=== PATIENT | female | born 2000 | race Caucasian/White ===

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

== ENCOUNTER 2020-08-29 16:46 | Emergency (ER) | payer OTHER ==
[~2020-08-29] VITALS: Ht 162.6 cm; Wt 81.8 kg
[~2020-08-29 16:46] MED LIST: ACNE MEDICINE; ALDACTONE 25MG25 M1 PO; ANTIBIOTIC; CEFTIN500 MG PO; DIFLUCAN 100MG100 MG PO; LEVAQUIN 5500 MG/TA1 PO; LEVSIN 0.10.125 MG/T PO
[2020-08-29 17:21] VITALS: TEMP 98.3
[2020-08-29] MEDS ORDERED: NEXPLANON68 MG ID (22:11)
[2020-08-29] MEDS ORDERED: VOLTAREN 75 DR75 MG PO (22:12)
[2020-08-29 22:50] VITALS: BP 121/83; PULSE 84
== END 2020-08-29 22:50 | disposition home or self-care (01) ==
LOC: COL.ER 16:46
DX: S39.012A Strain of muscle, fascia and tendon of lower back, initial encounter (principal); S16.1XXA Strain of muscle, fascia and tendon at neck level, initial encounter; F07.81 Postconcussional syndrome; R30.0 Dysuria; Z32.02 Encounter for pregnancy test, result negative; V49.40XA Driver injured in collision with unspecified motor vehicles in traffic accident, initial encounter